=== PATIENT | female | born 1950 | race Caucasian/White ===

== ENCOUNTER 2018-04-16 07:15 | Day surgery (SDC) | payer MEDICARE, MEDICAID ==
[~2018-04-16] VITALS: Ht 154.9 cm; Wt 58.1 kg
[2018-04-16] VITALS (11 sets, daily range): BP systolic 133–155; BP diastolic 72–96
--- NOTE | 2018-04-16 06:28 | Anethesia Preoperative Eval ---
Anesthesia Pre-op PMH/ROS General Date of Evaluation: Apr 16, 2018 Time of Evaluation: 06:27 Anesthesiologist: jose ASA Score: ASA 3 Mallampati Score Class I : Soft palate, uvula, fauces, pillars visible Class II: Soft palate, uvula, fauces visible Class III: Soft palate, base of uvula visible Class IV: Only hard plate visible Mallampati Classification: Class II Surgeon: kylee Diagnosis: gerd, colon screening Surgical Procedure: egd/colonoscopy Anesthesia History: none Social History: smoking Family History: no anesthesia problems Allergies: Coded Allergies: ADIEL BAKER (Unverified Allergy, Severe, 04/11/18) Medications: see eMAR Past Medical History Cardiovascular: Reports: HTN, other - hyperlidemia Pulmonary: Denies: asthma, COPD, DELIA, other Gastrointestinal/Genitourinary: Reports: GERD Neurologic/Psychiatric: Denies: dementia, CVA, depression/anxiety, TIA, other Endocrine: Reports: DM HEENT: Denies: cataract (L), cataract (R), glaucoma, [place] (L), [place] (R), other Hematology/Immune: Denies: anemia, DVT, bleeding disorder, other Musculoskeletal/Integumentary: Denies: OA, RA, DJD, DDD, edema, other PSxH Narrative: d&c Anesthesia Pre-op Phys. Exam Physician Exam Last Vital Signs Date Time Temp Pulse Resp B/P (MAP) Pulse Ox O2 Delivery O2 Flow Rate FiO2 04/16/18 07:53 97.8 67 18 149/96 96 Room Air 97.8 Constitutional: NAD Neurologic: CN 2-12 intact Cardiovascular: RRR Respiratory: CTA Gastrointestinal: S/NT/ND Airway Exam Mallampati Score: Class II MO: full Neck: supple TMD: 2fb ROM: full Dentures: upper Anesthesia Pre-op A/P Labs Accucheck 132 Risk Assessment & Plan Assessment: asa3 Plan: mac Status Change Before Surgery: No Pre-Antibiotics Drug: Lola Chatterjee MD Apr 16, 2018 06:27
[~2018-04-16 07:15] MED LIST: Atropine Inj 1mg/10ml Syr IV PRN; DiphenhydrAMINE 50mg/ml Inj IVP PRN; Midazolam 2mg/2ml Inj IVP PRN; fentaNYL 100 mcg/2 mL IV PRN
[2018-04-16] MEDS ORDERED: FISH OIL CAP1000 MG ORAL (07:56)
[2018-04-16] MEDS ORDERED: Midazolam 2mg/2ml Inj ONE (08:30)
[2018-04-16] MEDS ORDERED: Lidocaine 1% MPF 10mg/ml 5ml ONE (08:30)
[2018-04-16] MEDS ORDERED: Propofol 200mg/20ml IV ONE (08:30)
--- NOTE | 2018-04-16 09:09 | Pre-Procedure Note/Attestation ---
Pre-Procedure Note/Attestation Complete Prior to Procedure Planned Procedure: not applicable Procedure Narrative: esophagogastroduodenoscopy and colonoscopy Indications for Procedure Pre-Operative Diagnosis: screening colon, GERD Attestation I attest that I discussed the nature of the procedure; its benefits; risks and complications; and alternatives (and the risks and benefits of such alternatives ), prior to the procedure, with the patient (or the patient's legal underwriting account representative). I attest that, if there was a reasonable possibility of needing a blood transfusion, the patient (or the patient's legal underwriting account representative) was given the [facility] standardized written summary, pursuant to the [place] Blood Safety Act ([place] Health and Safety Code # 1645, as amended). I attest that I re-evaluated the patient just prior to the surgery and that there has been no change in the patient's H&P, except as documented below: Andreas Moses MD Apr 16, 2018 09:09
--- NOTE | 2018-04-16 09:09 | Short Stay Surgery H&P ---
History of Present Illness History of Present Illness Chief Complaint see recent consult note HPI Sara Davis is a 67 year old female who was admitted on for Gerd, Colon Screening Patient History Allergies: Coded Allergies: ADIEL BAKER (Unverified Allergy, Severe, 04/11/18) Medication History Scheduled Fish Oil (Fish Oil 1,000 mg Capsule), 1,000 MG ORAL DAILY, (Reported) Physical Exam Vital Signs Last Vital Signs Date Time Temp Pulse Resp B/P (MAP) Pulse Ox O2 Delivery O2 Flow Rate FiO2 04/16/18 07:53 97.8 67 18 149/96 96 Room Air 97.8 Plan Attestation Are the patient's medical conditions optimized for surgery? Andreas Moses MD Apr 16, 2018 09:09
--- NOTE | 2018-04-16 09:41 | Endoscopy Procedure Note ---
Endoscopy Procedure Note General Indication for Procedure: screening hemorrhoids Procedures Performed: EGD, colonoscopy Operative Findings/Diagnosis: 4 polyps, gastritis Specimen: yes Pt Tolerated Procedure Well: Yes Estimated Blood Loss: none Anesthesia Anesthesiologist: cristin Anesthesia: MAC Inserted Devices Implant(s) used?: No Quality Quality of Bowel Preparation: Excellent Did scope reach the cecum?: Yes Was there any complications?: No GI Core Measures 50 yrs or older w/o bx or poly: No 10yrs. F/U not recommended: Yes If not recommended, why?: Above average risk 10 yrs. F/U needed: Yes 18 years or older w/prev. colo: No Andreas Moses MD Apr 16, 2018 09:41
--- NOTE | 2018-04-16 10:15 | Procedure Note ---
DATE OF PROCEDURE: 04/16/2018 SURGEON: Andreas Moses M.D. ANESTHESIOLOGIST: Dr. Enciso. PROCEDURE: Colonoscopy with snare polypectomy and biopsy and endoscopy with biopsy. ANESTHESIA: Per Dr. Enciso. INSTRUMENT: Olympus adult flexible upper endoscope and colonoscope. INDICATIONS: Screening colonoscopy evaluation and chronic GERD. The procedure, risks, benefits, and possible consequences, including hemorrhage, aspiration, perforation and infection, and alternative treatments, were explained to the patient/legal guardian by Dr. Andreas Moses and the patient/legal guardian understood and accepted these risks. DESCRIPTION OF PROCEDURE: After informed consent was obtained and the patient was adequately sedated, Olympus upper endoscope was advanced from the mouth into the second portion of the duodenum and retroflexion was performed in the stomach. The patient had evidence of diffuse gastritis. Random biopsy from antrum and body was obtained to rule out H. pylori infection. Otherwise, the rest of the upper endoscopic examination grossly within normal limit. At this time, the upper endoscope was retrieved. The patient was turned over for colonoscopy. First, rectal exam was performed which was normal. Then, the scope was advanced from rectum into the cecum and subsequently to terminal ileum. Quality of prep was excellent. The patient had a total of 4 polyps, the largest polyp was in the sigmoid colon and measured roughly about 2.5 centimeters, pedunculated, removed with snare polypectomy technique. There was another polyp in the transverse colon, roughly about 1 cm, removed with piecemeal fashion with snare polypectomy technique. There were two polyps in the cecum, one diminutive removed with the cold biopsy forceps technique and another polyp which measured roughly about 6 mm removed with hot snare polypectomy technique. The patient had some scattered diverticula, one or two in the left and maybe one or two on the right. Retroflexion of rectum showed no obvious internal hemorrhoids. SUMMARY OF FINDINGS: 1. Gastritis, status post biopsy. 2. Four colonic polyps removed, see above for details. 3. Diverticulosis. RECOMMENDATIONS: 1. Follow up biopsy results. 2. Recommend repeat colonoscopy in three years. Andreas Moses M.D. DR: Addis JOB#: [id number] CC:
[2018-04-16] MEDS ORDERED: Artificial Tears 1.4% Op Soln BOTH EYES PRN (10:30)
--- NOTE | 2018-04-16 11:29 | Immediate Post-Op Evaluation ---
Immediate Post-Op Evalulation Immediate Post-Op Evalulation Procedure: egd/colonoscopy/bx Date of Evaluation: Apr 16, 2018 Time of Evaluation: 09:55 IV Fluids: 350ml 0.9ns Blood Products: none Estimated Blood Loss: negligible Blood Pressure Systolic: 133 Blood Pressure Diastolic: 93 Pulse Rate: 67 Respiratory Rate: 18 O2 Sat by Pulse Oximetry: 100 Temperature (Fahrenheit): 97.1 Pain Score (1-10): 0 Nausea: No Vomiting: No Complications none Patient Status: awake, reacts, patent Hydration Status: adequate Drug: Lola Chatterjee MD Apr 16, 2018 11:29
--- NOTE | 2018-04-16 11:31 | 48 Hour Post Anesthesia Eval ---
Post Anesthesia Evaluation Procedure: egd/colonoscopy/bx Date of Evaluation: Apr 16, 2018 Time of Evaluation: 09:57 Blood Pressure Systolic: 136 0: 86 Pulse Rate: 62 Respiratory Rate: 18 Temperature (Fahrenheit): 97.1 O2 Sat by Pulse Oximetry: 100 Airway: patent Nausea: No Vomiting: No Pain Intensity: 0 Hydration Status: adequate Cardiopulmonary Status: stable Mental Status/LOC: patient returned to baseline Post-Anesthesia Complications: none Follow-up care needed: N/A Lola De León MD Apr 16, 2018 11:31
--- NOTE | 2018-04-18 15:19 | Cardiology Report ---
APPROVED REPORT EKG Measurement Heart [id number] Sinus bradycardia Otherwise normal ECG
== END 2018-04-16 11:50 | disposition home or self-care (01) ==
LOC: GAS 07:15
DX: Z12.11 Encounter for screening for malignant neoplasm of colon (principal); K21.9 Gastro-esophageal reflux disease without esophagitis; R00.1 Bradycardia, unspecified; K29.50 Unspecified chronic gastritis without bleeding; B96.81 Helicobacter pylori [H. pylori] as the cause of diseases classified elsewhere; D12.5 Benign neoplasm of sigmoid colon; D12.3 Benign neoplasm of transverse colon; D12.0 Benign neoplasm of cecum; Z91.018 Allergy to other foods; I10 Essential (primary) hypertension; E78.5 Hyperlipidemia, unspecified; E11.9 Type 2 diabetes mellitus without complications
CPT/HCPCS: 43239; 45380; 45384; 82962; 93005; J2250; J2704; 94003; 94150

== ENCOUNTER 2018-05-15 08:54 | Outpatient (CLI) | payer MEDICARE, MEDICAID ==
[~2018-05-15 08:54] MED LIST changes: -Atropine Inj 1mg/10ml Syr IV PRN; -DiphenhydrAMINE 50mg/ml Inj IVP PRN; +FISH OIL CAP1000 MG ORAL; -Midazolam 2mg/2ml Inj IVP PRN; -fentaNYL 100 mcg/2 mL IV PRN
[2018-05-15 09:33] VITALS: BP 135/77
--- NOTE | 2018-05-15 09:53 | GI Progress Note ---
Assessment/Plan Problems: (1) Colon polyps ICD Codes: K63.5 - Polyp of colon SNOMED: 29496440 (2) Gastritis ICD Codes: K29.70 - Gastritis, unspecified, without bleeding SNOMED: 1856469 Status: stable Status Narrative Seen with Dr. Moses. Assessment/Plan SUMMARY OF FINDINGS reviewed with patient: 1. Gastritis, status post biopsy. 2. Four colonic polyps removed, see above for details. 3. Diverticulosis. RECOMMENDATIONS: 1. Follow up biopsy results. >> positive for H. Pylori - Doxycycline 100 BID - Flagyl 250 QID - Omeprazole 40mg - Bismuth Subsalicylate 525 PO QID x 14 days RTC x 1 month for repeat Breath Test 2. Recommend repeat colonoscopy in three years. Subjective Gastrointestinal/Abdominal: Reports: no symptoms Objective Last 24 Hour Vital Signs Date Time Temp Pulse Resp B/P (MAP) Pulse Ox O2 Delivery O2 Flow Rate FiO2 05/15/18 09:33 97.4 82 18 135/77 97 97.4 General Appearance: WD/WN, no apparent distress, alert Cardiovascular: normal rate Respiratory/Chest: normal breath sounds, no respiratory distress Abdominal Exam: normal bowel sounds, non tender, soft Extremities: normal range of motion, non-tender Rekha Roth APPLICATION PERFORMANCE ENGINEER May 15, 2018 09:53
== END 2018-05-15 09:29 | disposition home or self-care (01) ==
LOC: PAN 08:54
DX: K63.5 Polyp of colon (principal); K29.70 Gastritis, unspecified, without bleeding; K57.90 Diverticulosis of intestine, part unspecified, without perforation or abscess without bleeding
CPT/HCPCS: 99212

== ENCOUNTER 2018-08-14 09:20 | Outpatient (CLI) | payer MEDICARE, MEDICAID ==
[2018-08-14 09:39] VITALS: BP 126/64
--- NOTE | 2018-08-14 15:46 | GI Progress Note ---
Assessment/Plan Problems: (1) Helicobacter pylori (H. pylori) ICD Codes: A04.8 - Other specified bacterial intestinal infections SNOMED: 541704697 Status: stable Status Narrative Seen with Dr. Moses. Assessment/Plan Breath Test today RTC x1 month/prn patient will need follow up if bacteria is still present The patient was seen and examined at bedside and all new and available data was reviewed in the patients chart. I agree with the above findings, impression and plan. (Patient seen earlier today. Signature stamp does not reflect patient encounter time.). - Andreas Moses MD Subjective Subjective GERD H. Pylori Positive s/p treatment Objective Last 24 Hour Vital Signs Date Time Temp Pulse Resp B/P (MAP) Pulse Ox O2 Delivery O2 Flow Rate FiO2 08/14/18 09:39 97.8 56 16 126/64 98 97.8 Laboratory Tests Test 08/14/18 09:50 Helicobacter pylori Breath Test Pending General Appearance: WD/WN, no apparent distress, alert Cardiovascular: normal rate Respiratory/Chest: normal breath sounds, no respiratory distress Abdominal Exam: normal bowel sounds, non tender, soft Extremities: normal range of motion, non-tender Rekha Roth HEART COORDINATOR Aug 14, 2018 15:46
== END 2018-08-14 09:50 | disposition home or self-care (01) ==
LOC: PAN 09:20
DX: A04.8 Other specified bacterial intestinal infections (principal); K21.9 Gastro-esophageal reflux disease without esophagitis
CPT/HCPCS: 83013; G0463